=== PATIENT | female | born 2000 | race Two or more races ===

== ENCOUNTER 2019-09-12 16:27 | Emergency (ER) | payer OTHER ==
--- NOTE | 2019-09-12 19:47 | ER Document Report ---
ED General - General Chief Complaint: Nausea/Vomiting/Diarrhea Stated Complaint: SHORT OF BREATH,HEADACHE,VOMITING Notes: Patient is a 19-year-old female with no significant past medical history who presents to the emergency department with a chief complaint of nausea and vomiting that began this morning upon waking. Patient reports that last night when she went to bed she felt fine. She states this morning upon waking she began feeling nauseous and started vomiting. She states she is vomited multiple times today, unsure of the number. She admits to some mild associated diarrhea as well. Admits to associated headache. She denies any localized pains. Denies any fever, chills or night sweats. She denies any recent travel or sick contacts. She states that she has been isolated in her home with her recently for the past 2 weeks because her was ill previously with respiratory symptoms, had a COVID test done and while he quaran tined they found out the test was negative. She quarantined with him since she was exposed to him. She has never had any similar signs or symptoms. She denies any cough or shortness of breath. No chest pain. No vaginal bleeding or discharge. She reports her last normal menstrual period was over 2 months ago. She states she took a home test last month but it was negative. She is unsure if she could be . She states that she is thirsty and is requesting food and drink. Denies any other pain, complaints or concerns at this time. - Related Data Allergies/Adverse Reactions: No Known Allergies Allergy (Verified 09/12/19 18:31) Past Medical History - Social History Smoking Status: Never Smoker Chew tobacco use (# tins/day): No Frequency of alcohol use: None Drug Abuse: None Family History: Reviewed & Not Pertinent Review of Systems - Review of Systems Gastrointestinal: Diarrhea, Nausea, Vomiting Neurological/Psychological: Headaches -: Yes All other systems reviewed and negative Physical Exam - Vital signs Vitals: Temp 98.0 F 09/12/19 18:16 - General General appearance: Appears well, Alert In distress: None - HEENT Head: Normocephalic, Atraumatic Eyes: Normal Conjunctiva: Normal Extraocular movements intact: Yes Eyelashes: Normal Pupils: PERRL Ears: Normal External canal: Normal Tympanic membrane: Normal Nasal: Normal Mouth/Lips: Normal Pharynx: Normal Neck: Normal, Supple - Respiratory Respiratory status: No respiratory distress Chest status: Nontender Breath sounds: Normal Chest palpation: Normal - Cardiovascular Rhythm: Regular Heart sounds: Normal auscultation - Abdominal Inspection: Normal Distension: No distension Bowel sounds: Normal Tenderness: Nontender Organomegaly: No organomegaly - Back Back: No: CVA tenderness - Extremities General upper extremity: Normal inspection, Nontender, Normal color, Normal ROM, Normal temperature General lower extremity: Normal inspection, Nontender, Normal color, Normal ROM, Normal temperature, Normal weight bearing. No: Jorge Alberto's sign - Neurological Neuro grossly intact: Yes Cognition: Normal Orientation: AAOx4 Jm Coma Scale Eye Opening: Spontaneous Jm Coma Scale Verbal: Oriented Jm Coma Scale Motor: Obeys Commands Jm Coma Scale Total: 15 Speech: Normal - Psychological Associated symptoms: Normal affect, Normal mood - Skin Skin Temperature: Warm Skin Moisture: Dry Skin Color: Normal Course - Re-evaluation Re-evalutation: 09/12/19 22:01 Patient tolerated oral intake well, p.o. challenge was successful. She has advised the nurse that she is ready to go. No concerns for COVID exposure at this time. She is well-appearing, nontoxic otherwise stable and appropriate for discharge and outpatient follow-up. She was given a short course of Zofran and we discussed dietary precautions. Counseled her regarding the importance of outpatient follow-up and advised that she return here or any ER immediately with any new, persistent or worsening symptoms. She verbalized understood and agreed. - Vital Signs Vital signs: Temp Pulse Resp BP Pulse Ox 98.0 F 59 L 15 104/83 100 09/12/19 18:30 09/12/19 18:30 09/12/19 18:30 09/12/19 18:30 09/12/19 18:30 - Laboratory Result Diagrams: 09/12/19 20:05 09/12/19 20:05 Laboratory results interpreted by me: 09/12/19 09/12/19 09/12/19 20:05 20:05 20:05 MCV 75 L MCH 24.0 L RDW 18.0 H Sodium 135.4 L Creatinine 0.35 L AST 37 H ALT 38 H Urine Ketones 80 H Discharge - Discharge Clinical Impression: Late menses Nausea and vomiting Qualifiers: Vomiting type: unspecified Vomiting Intractability: unspecified Qualified Code(s): R11.2 - Nausea with vomiting, unspecified Condition: Stable Disposition: HOME, SELF-CARE Instructions: Vomiting ([facility]) Additional Instructions: Follow-up with your regular doctor in 2 to 3 days for reevaluation. Return here or any ER immediately with any new, persistent or worsening symptoms. Prescriptions: Ondansetron [Zofran Odt 4 mg Tablet] 4 mg PO Q8 #30 tab.rapdis
[2019-09-12 20:13] LABS: ABSOLUTE BASOPHILS # (AUTO) 0.1 10^3/uL (0.0-0.2); ABSOLUTE EOSINOPHILS # (AUTO) 0.1 10^3/uL (0.0-0.6); ABSOLUTE LYMPHOCYTES (AUTO) 2.5 10^3/uL (0.5-4.7); ABSOLUTE MONOCYTES (AUTO) 0.4 10^3/uL (0.1-1.4); ABSOLUTE NEUT (AUTO) 5.9 10^3/uL (1.7-8.2); BASOPHILS % (AUTO) 0.6 % (0-2); EOSINOPHILS % (AUTO) 1.5 % (0-6); HEMATOCRIT 39.6 % (36.0-47.0); HEMOGLOBIN 12.7 g/dL (12.0-15.5); LYMPHOCYTES % (AUTO) 27.6 % (13-45); MEAN CORPUSCULAR VOLUME 75 fl (80-97); MONOCYTES % (AUTO) 4.7 % (3-13); PLATELET COUNT 274 10^3/uL (150-450); RED BLOOD COUNT 5.28 10^6/uL (3.72-5.28); SEGMENTED NEUTROPHILS % (AUTO) 65.6 % (42-78); TOTAL CELLS COUNTED % (AUTO) 100 %
[2019-09-12 20:16] LABS: APPEARANCE,URINE CLEAR; BILIRUBIN,URINE NEGATIVE (NEGATIVE); COLOR,URINE YELLOW; GLUCOSE, URINE NEGATIVE (NEGATIVE); KETONES,URINE 80 mg/dL (NEGATIVE); PROTEIN,URINE NEGATIVE (NEGATIVE); URINE SPECIFIC GRAVITY 1.016; UROBILINOGEN,URINE NEGATIVE mg/dL (<2.0)
[2019-09-12 20:31] LABS: ALBUMIN 4.7 g/dL (3.5-5.0); ALKALINE PHOSPHATASE 88 U/L (38-126); ANION GAP 7 (5-19); ASPARTATE AMINO TRANSFERASE 37 U/L (14-36); BILIRUBIN,TOTAL 0.4 mg/dL (0.2-1.3); BLOOD UREA NITROGEN 7 mg/dL (7-20); CALCIUM 9.9 mg/dL (8.4-10.2); CARBON DIOXIDE 22 mmol/L (22-30); CHLORIDE 106 mmol/L (98-107); GLUCOSE 91 mg/dL (75-110); POTASSIUM 3.8 mmol/L (3.6-5.0); TOTAL PROTEIN 7.8 g/dL (6.3-8.2)
[2019-09-12 22:03] VITALS: BP 133/81
== END 2019-09-12 22:20 | disposition home or self-care (01) ==
LOC: ER 16:27
DX: R11.2 Nausea with vomiting, unspecified (principal); R19.7 Diarrhea, unspecified; R51 Headache; R39.89 Other symptoms and signs involving the genitourinary system
CPT/HCPCS: 36415; 80053; 81001; 83690; 84703; 85025; 99284